=== PATIENT | male | born 1990 | race Caucasian/White ===

== ENCOUNTER 2024-06-30 13:49 | Observation (INO) | payer OTHER ==
--- NOTE | 2024-06-30 14:12 | ED ---
General Adult HPI - General Chief complaint: Trauma Stated complaint: Left arm injury Time Seen by Provider: 06/30/24 13:56 Source: patient, RN notes reviewed Mode of arrival: EMS Limitations: no limitations - History of Present Illness Initial comments: Patient is a 33-year-old male presenting to the emergency department with concerns for arm injuries. Patient was using a small skid with a bucket on it and accidentally pinched his upper arms, left more than right. Patient has significant discomfort mostly left upper arm. Patient received pain medication by EMS however still has discomfort. Last tetanus immunization was around 10 years ago. Patient denies any head injury. No neck or back pain. No headache. No chest pain or dyspnea. No abdominal pain. Patient was able to ambulate. Patient also has some discomfort right upper arm however not as severe and some mild discomfort right lower leg below the knee. Patient does admit to having a couple of beers earlier. - Related Data Allergies Allergy/AdvReac Type Severity Reaction Status Date / Time No Known Allergies Allergy Verified 06/30/24 16:15 Review of Systems ROS Statement: Those systems with pertinent positive or pertinent negative responses have been documented in the HPI. ROS Other: All systems not noted in ROS Statement are negative. Constitutional: Denies: fever Eyes: Denies: eye pain ENT: Denies: ear pain Respiratory: Denies: cough Cardiovascular: Denies: chest pain Endocrine: Denies: fatigue Gastrointestinal: Denies: abdominal pain, vomiting Musculoskeletal: Reports: as per HPI Skin: Reports: as per HPI Past Medical History Past Medical History: No Reported History History of Any Multi-Drug Resistant Organisms: None Reported Past Surgical History: No Surgical Hx Reported Past Psychological History: No Psychological Hx Reported Past Alcohol Use History: Daily, Occasional Past Drug Use History: None Reported General Exam Limitations: no limitations General appearance: alert Head exam: Present: atraumatic, normocephalic Eye exam: Present: normal appearance, PERRL, EOMI ENT exam: Present: normal oropharynx Neck exam: Present: normal inspection. Absent: tenderness Respiratory exam: Present: normal lung sounds bilaterally Cardiovascular Exam: Present: regular rate, normal rhythm Expanded Peripheral pulses: 2+: Radial (R), Radial (L), Posterior Tibialis (R), Posterior Tibialis (L), Dorsalis Pedis (R), Dorsalis Pedis (L) GI/Abdominal exam: Present: soft. Absent: distended, tenderness Extremities exam: Present: tenderness (Moderate to severe left upper arm, moderate right upper arm, minimal right anterior tib below the knee. Distally all extremities are neurovascularly intact and pulses are present. Good sensation. Good cap refill. Good strength.) Back exam: Present: normal inspection. Absent: tenderness, vertebral tenderness Neurological exam: Present: alert, oriented X3, CN II-XII intact. Absent: motor sensory deficit Psychiatric exam: Present: normal affect, normal mood Skin exam: Present: other (Left upper arm near the mid humerus with laceration approximately 2 cm. Right upper arm laceration in the similar area approximate ly 1 cm. Abrasion/laceration right elbow less than 1 cm. Right lower leg abrasions.) Course Vital Signs 06/30/24 13:55 Temperature 97.3 F L Pulse Rate 75 Respiratory 26 H Rate Blood Pressure 163/100 O2 Sat by Pulse 100 Oximetry - Reevaluation(s) Reevaluation #1: 06/30/24 17:11 CT scan and x-rays did result, x-rays at 4:59 PM. Case was discussed with Dr. Goodman pedraza who will keep patient for observation and continue to check and is aware and agrees with the risk of developing compartment syndrome in the future. He does recommend continuing Kefzol and is okay with superficial sutures. EKG Findings - EKG Results: EKG: interpreted by JAHAIRAD, sinus rhythm, normal axis, normal QRS, normal ST/T Procedures - Laceration Laceration #1 Consent Obtained: verbal consent Indication: laceration Site: upper extremity (right) Size (cm): 2 Description: linear Anesthetic Used: lidocaine 1% Anesthesia Technique: local infiltration Amount (mls): 3 Pre-repair: wound explored, irrigated extensively Type of Sutures: nylon Size of Sutures: 4-0 Number of Sutures: 2 Technique: simple, interrupted Patient Tolerated Procedure: well, no complications Laceration #2 Consent Obtained: verbal consent Indication: laceration Site: upper extremity (left) Size (cm): 4 Description: linear Anesthetic Used: lidocaine 1% Anesthesia Technique: local infiltration Amount (mls): 4 Pre-repair: wound explored, irrigated extensively, foreign body removed (mild amt. metal like material) Type of Sutures: nylon Size of Sutures: 4-0 Number of Sutures: 4 Technique: simple, interrupted Patient Tolerated Procedure: well, no complications Medical Decision Making - Medical Decision Making Priority [address] and Dr[address] Marte was notified and evaluated patient. Was pt. sent in by a medical professional or institution (DON Zarate, GENERAL EXPEDITOR, urgent care, hospital, or fdc...) When possible be specific @ -No Did you speak to anyone other than the patient for history (EMS, parent, family, police, friend...)? What history was obtained from this source @ - is present and helps provide history of incident Did you review nursing and triage notes (agree or disagree)? Why? @ -I reviewed and agree with nursing and triage notes Were old charts reviewed (outside hosp., previous admission, EMS record, old EKG, old radiological studies, urgent care reports/EKG's, fdc records)? Report findings @ -No old charts were reviewed Differential Diagnosis (chest pain, altered mental status, abdominal pain women, abdominal pain men, vaginal bleeding, weakness, fever, dyspnea, syncope, headache, dizziness, GI bleed, back pain, seizure, CVA, palpatations, mental health, musculoskeletal)? @ -Differential Musculoskeletal Muscular strain, contusion, ligament sprain, fracture, arthritis, septic arthritis, bursitis, cellulitis, muscle spasm, nerve compression, DVT, arterial occlusion, herpes zoster, electrolyte abnormality, tumor.... This is not meant to be in all inclusive list EKG interpreted by me (3pts min.). @ -As above X-rays interpreted by me (1pt min.). @ -X-ray bilateral humerus and elbows without acute fracture. There is some soft tissue gas. X-ray right tib-fib without acute abnormality CT interpreted by me (1pt min.). @ -CT scan brain, cervical spine, chest abdomen pelvis without acute traumatic injury U/S interpreted by me (1pt. min.). @ -None done What testing was considered but not performed or refused? (CT, X-rays, U/S, labs)? Why? @ -None What meds were considered but not given or refused? Why? @ -None Did you discuss the management of the patient with other professionals (p rofessionals i.e. , DON, GENERAL EXPEDITOR, lab, RT, psych nurse, social science teacher, rotary drill rig operator, teacher, safety security officer, piano case and bench assembler)? Give summary @ -Case discussed with Dr. Marte previously, see above. Case also discussed with Dr. Escobar send who does agree to keep patient Was smoking cessation discussed for >3mins.? @ -No Was critical care preformed (if so, how long)? @ -No Were there social determinants of health that impacted care today? How? (Homelessness, low income, unemployed, alcoholism, drug addiction, transportation, low edu. Level, literacy, decrease access to med. care, intermediate, rehab)? @ -No Was there de-escalation of care discussed even if they declined (Discuss DNR or withdrawal of care, Hospice)? DNR status @ -No What co-morbidities impacted this encounter? (DM, HTN, Smoking, COPD, CAD, Cancer, CVA, ARF, Chemo, Hep., AIDS, mental health diagnosis, sleep apnea, morbid obesity)? @ -None Was patient admitted / discharged? Hospital course, mention meds given and route, prescriptions, significant lab abnormalities, going to OR and other pertinent info. @ -Patient presents with crush injury bilateral upper arms with lacerations. No obvious fracture however patient is high risk for compartment syndrome and will be kept with orthopedics. Patient discomfort is tolerable at this time and no evidence of compartment syndrome. Distally extremities are neurovascularly intact. Patient and family are updated, lacerations sutured superficially Undiagnosed new problem with uncertain prognosis? @ -No Drug Therapy requiring intensive monitoring for toxicity (Heparin, Nitro, Insulin, Cardizem)? @ -No Were any procedures done? @ -Laceration repair, see above Diagnosis/symptom? @ -Crush injury bilateral upper arms Acute, or Chronic, or Acute on Chronic? @ -Acute Uncomplicated (without systemic symptoms) or Complicated (systemic symptoms)? @ -Default Side effects of treatment? @ -No Exacerbation, Progression, or Severe Exacerbation? @ - Poses a threat to life or bodily function? How? (Chest pain, USA, MD, pneumonia, PE, COPD, DKA, ARF, appy, cholecystitis, CVA, Diverticulitis, Homicidal, Suicidal, threat to staff... and all critical care pts) @ -Threat of compartment syndrome - Lab Data Result diagrams: 06/30/24 14:03 06/30/24 14:03 Lab Results 06/30/24 06/30/2424 Range/Units 14:03 14:03 14:03 WBC 11.4 H (3.8-10.6) k/uL RBC 4.50 (4.30-5.90) m/uL Hgb 13.9 (13.0-17.5) gm/dL Hct 41.9 (39.0-53.0) % MCV 93.0 (80.0-100.0) fL MCH 31.0 (25.0-35.0) pg MCHC 33.3 (31.0-37.0) g/dL RDW 12.0 (11.5-15.5) % Plt Count 417 (150-450) k/uL MPV 6.7 Neutrophils % 56 % Lymphocytes % 33 % Monocytes % 5 % Eosinophils % 2 % Basophils % 1 % Neutrophils # 6.4 (1.3-7.7) k/uL Lymphocytes # 3.8 (1.0-4.8) k/uL Monocytes # 0.6 (0-1.0) k/uL Eosinophils # 0.2 (0-0.7) k/uL Basophils # 0.1 (0-0.2) k/uL PT 10.7 (10.0-12.5) sec INR 1.0 (<1.2) APTT 24.4 (22.0-30.0) sec Sodium 139 (137-145) mmol/L Potassium 4.0 (3.5-5.1) mmol/L Chloride 108 H (98-107) mmol/L Carbon Dioxide 22 (22-30) mmol/L Anion Gap 9 mmol/L BUN 16 (9-20) mg/dL Creatinine 0.99 (0.66-1.25) mg/dL Est GFR (CKD-EPI)AfAm >90 (>60 ml/min/1.73 sqM) Est GFR (CKD-EPI)NonAf >90 (>60 ml/min/1.73 sqM) Glucose 94 (74-99) mg/dL Calcium 9.4 (8.4-10.2) mg/dL Total Bilirubin 0.4 (0.2-1.3) mg/dL AST 23 (17-59) U/L ALT 14 (4-49) U/L Alkaline Phosphatase 70 (38-126) U/L Troponin I (0.000-0.034) ng/mL Total Protein 6.8 (6.3-8.2) g/dL Albumin 4.3 (3.5-5.0) g/dL Serum Alcohol 38 mg/dL Blood Type Blood Type Confirm Blood Type Recheck Bld Type Recheck Status Antibody Screen Spec Expiration Date 06/30/24 06/30/24 06/30/24 Range/Units 14:03 14:03 15:25 WBC (3.8-10.6) k/uL RBC (4.30-5.90) m/uL Hgb (13.0-17.5) gm/dL Hct (39.0-53.0) % MCV (80.0-100.0) fL MCH (25.0-35.0) pg MCHC (31.0-37.0) g/dL RDW (11.5-15.5) % Plt Count (150-450) k/uL MPV Neutrophils % % Lymphocytes % % Monocytes % % Eosinophils % % Basophils % % Neutrophils # (1.3-7.7) k/uL Lymphocytes # (1.0-4.8) k/uL Monocytes # (0-1.0) k/uL Eosinophils # (0-0.7) k/uL Basophils # (0-0.2) k/uL PT (10.0-12.5) sec INR (<1.2) APTT (22.0-30.0) sec Sodium (137-145) mmol/L Potassium (3.5-5.1) mmol/L Chloride (98-107) mmol/L Carbon Dioxide (22-30) mmol/L Anion Gap mmol/L BUN (9-20) mg/dL Creatinine (0.66-1.25) mg/dL Est GFR (CKD-EPI)AfAm (>60 ml/min/1.73 sqM) Est GFR (CKD-EPI)NonAf (>60 ml/min/1.73 sqM) Glucose (74-99) mg/dL Calcium (8.4-10.2) mg/dL Total Bilirubin (0.2-1.3) mg/dL AST (17-59) U/L ALT (4-49) U/L Alkaline Phosphatase (38-126) U/L Troponin I <0.012 (0.000-0.034) ng/mL Total Protein (6.3-8.2) g/dL Albumin (3.5-5.0) g/dL Serum Alcohol mg/dL Blood Type O Positive Blood Type Confirm O Positive Blood Type Recheck No Previous Record Bld Type Recheck Status CABO Indicated Antibody Screen NEGATIVE Spec Expiration Date 07/03/20242302 Disposition Clinical Impression: Crush injury arm Disposition: ADMITTED IP TO THIS HOSP Is patient prescribed a controlled substance at d/c from ED?: No Referrals: None,Stated [Primary Care Provider] - 1-2 days Time of Disposition: 17:14
[2024-06-30] MEDS: HYDROmorphone 1 MG/ML 1 ML SYRINGE IVP STA ×2 (14:15→16:19)
[2024-06-30 14:16] LABS: Basophils # (A) 0.1 k/uL (0-0.2); Basophils % (A) 1 %; Eosinophils # (A) 0.2 k/uL (0-0.7); Eosinophils % (A) 2 %; HCT 41.9 % (39.0-53.0); HGB 13.9 gm/dL (13.0-17.5); Lymphocytes # (A) 3.8 k/uL (1.0-4.8); Lymphocytes % (A) 33 %; MCHC 33.3 g/dL (31.0-37.0); Mean Platelet Volume 6.7; Monocytes # (A) 0.6 k/uL (0-1.0); Monocytes % (A) 5 %; Neutrophils # (A) 6.4 k/uL (1.3-7.7); Neutrophils % (A) 56 %; Platelet Count 417 k/uL (150-450); WBC 11.4 k/uL (3.8-10.6)
[2024-06-30] MEDS: SODIUM CHLORIDE 0.9% 1,000 ML IV STA (14:16)
[2024-06-30 14:25] LABS: ALT 14 U/L (4-49); AST 23 U/L (17-59); African American GFR (CKD) >90 (>60 ml/min/1.73 sqM); Albumin 4.3 g/dL (3.5-5.0); Alcohol 38 mg/dL; Alkaline Phosphatase 70 U/L (38-126); Anion Gap 9 mmol/L; Blood Urea Nitrogen 16 mg/dL (9-20); Calcium 9.4 mg/dL (8.4-10.2); Carbon Dioxide 22 mmol/L (22-30); Chloride 108 mmol/L (98-107); Glucose 94 mg/dL (74-99); Non-African American GFR(CKD) >90 (>60 ml/min/1.73 sqM); Sodium 139 mmol/L (137-145); Total Bilirubin 0.4 mg/dL (0.2-1.3); Total Protein 6.8 g/dL (6.3-8.2)
[2024-06-30 14:26] LABS: Partial Thromboplastin Time 24.4 sec (22.0-30.0); Prothrombin Time 10.7 sec (10.0-12.5)
[2024-06-30] MEDS: DIPH,PERTUS(ACELL)TETVAC-LF 0.5 ML VIAL IM ONE (15:07)
--- NOTE | 2024-06-30 15:17 | XR ---
EXAM: XR chest 1V portable CLINICAL INDICATION:Male, 33 years old with history of trauma; [facility] COMPARISON: None. TECHNIQUE: Chest single view. FINDINGS: Lines/tubes/devices: None. Cardiomediastinum: Cardiac silhouette appears normal in size. Unremarkable mediastinal silhouette. Vasculature: No increased pulmonary vasculature. Lungs/pleura: Lung volumes are slightly low with mild crowding. No consolidation, sizeable effusion, or visible pneumothorax. Bones/soft tissues: Bony thorax appears grossly intact as seen. Regional soft tissues appear unremarkable. IMPRESSION: No acute cardiopulmonary findings. [facility], , 06/30/2024 3:14 PM
--- NOTE | 2024-06-30 15:17 | XR ---
EXAMINATION TYPE: XR pelvis AP view DATE OF EXAM: 06/30/2024 2:17 PM CLINICAL INDICATION:Male, 33 years old with history of Trauma; H COMPARISON: None TECHNIQUE: The pelvis was examined in a single projection. FINDINGS: There is no evidence of fracture or dislocation. There is no soft tissue abnormality. No abnormal ca lcifications are present. Pelvic phleboliths. The visualized lower lumbar spine appears intact. IMPRESSION: No acute fracture or dislocation identified, on this single view of the pelvis. [facility], , 06/30/2024 3:15 PM
--- NOTE | 2024-06-30 16:02 | CT ---
EXAMINATION TYPE: CT brain cspine wo con CT DLP: 1795.3 mGycm, Automated exposure control for dose reduction was used. DATE OF EXAM: 06/30/2024 2:44 PM COMPARISON: None. CLINICAL INDICATION:Male, 33 years old with history of trauma; trauma TECHNIQUE: Brain: Multiple axial CT images of the brain were obtained without IV contrast. Cspine: Axial CT images from the skull base to the inferior aspect of T2 we obtained without intraven ous contrast. Coronal and sagittal reformatted images were also reviewed. FINDINGS: Brain: Limitations by streak artifacts. Extra-axial spaces: No abnormal extra-axial fluid collections. Ventricular system: Within normal limits. Cerebral parenchyma: No increased attenuation to suggest acute intraparenchymal hemorrhage. The gra y-white matter interface appears maintained. No significant atrophy. White matter unremarkable by C T. Cerebellum: No acute abnormality. Mass effect: No evidence of mass effect or midline shift. Intracranial vasculature: Unremarkable Soft tissues: Normal. Visualized orbits: Orbital contents appear grossly intact. Calvarium/osseous structures: No evidence of calvarial fracture. Paranasal sinuses and mastoid air cells: Moderate scattered paranasal disease, greatest in the left m axillary. MRI is more sensitive for detecting acute processes such as infarct, and may be considered if clinica lly warranted. Cervical spine: Fracture: None seen. Osseous structures, spinal canal/neural foramina: Osseous structures appear unremarkable. No signific ant bony canal or neural foraminal stenoses. Canal and contents not well assessed by CT however no la rge disc protrusion or other acute abnormality is seen. If there is persistent concern MRI could be o btained for further evaluation. Vertebral alignment: No traumatic malalignment. Straightening mild reversal of the normal cervical lo rdosis, can be seen with degenerative changes, pain, positioning, muscular spasm. Neck soft tissues: No acute finding.. Other: Lung apices show no acute infiltrate or pneumothorax. IMPRESSION: CT head: 1. No acute intracranial CT abnormality. CT cervical spine: 1. No evidence of acute cervical spine fracture or traumatic malalignment. [facility], , 06/30/2024 4:00 PM
--- NOTE | 2024-06-30 16:38 | CT ---
EXAMINATION TYPE: CT ChestAbdPelvis w con CT DLP: 2329.8 mGycm, Automated exposure control for dose reduction was used. DATE OF EXAM: 06/30/2024 2:45 PM COMPARISON: None. CLINICAL INDICATION:Male, 33 years old with history of trauma; [facility], trauma TECHNIQUE: Multiple axial images of the chest, abdomen, and pelvis were obtained. Two-dimensional cor onal and sagittal reconstructions were obtained. Contrast used:100 mL of Isovue 300 with IV Contrast, Oral contrast used: without Oral Contrast FINDINGS: CHEST: LUNGS/ PLEURA: Minimal gravity dependent subsegmental atelectatic changes. Otherwise clear. No pleura l effusion or pneumothorax. AIRWAY: Central airways are patent. LOWER NECK: No significant findings. MEDIASTINUM: No evidence of adenopathy or hematoma. No free gas.. HEART: Normal heart size. No pericardial effusion. VASCULATURE: The aorta appears normally enhancing.. Ascending aorta is 2.8 CM, descending is 2.7 CM. Pulmonary trunk measures 2.9 CM. Pulmonary trunk is normal in size. Grossly preserved enhancement of the pulmonary arteries, in the limits of non-CTA exam. SOFT TISSUES/LYMPH NODES: Unremarkable soft tissues. No axillary adenopathy. MUSCULOSKELETAL: No acute osseous abnormalities OTHER: No other significant finding. ABDOMEN PELVIS: Streak artifacts ABDOMEN LIVER: Unremarkable GALLBLADDER AND BILE DUCTS: Unremarkable. PANCREAS: Unremarkable. SPLEEN: Unremarkable. ADRENAL GLANDS: Unremarkable.. KIDNEYS AND URETERS: No evidence of hydronephrosis, renal or ureteral calculus. PELVIS BLADDER: Unremarkable REPRODUCTIVE: Unremarkable. ABDOMEN & PELVIS STOMACH AND BOWEL: Stomach and duodenum are unremarkable normal appendix. Unremarkable colon. PERITONEUM/RETROPERITONEUM: No evidence of pneumoperitoneum or free fluid. VASCULATURE: No evidence of aortic aneurysm. MUSCULOSKELETAL: No acute osseous abnormalities LYMPH NODES: No enlarged nodes by CT size criteria. SOFT TISSUES/ABDOMINAL WALL: Unremarkable OTHER: No other significant finding. IMPRESSION: No acute radiographic findings. [facility], , 06/30/2024 4:35 PM
--- NOTE | 2024-06-30 16:54 | XR ---
EXAMINATION TYPE: XR elbow complete bilateral DATE OF EXAM: 06/30/2024 2:54 PM CLINICAL INDICATION:Male, 33 years old with history of trauma; H COMPARISON: TECHNIQUE: The bilateral elbows were examined in AP, lateral, and oblique projections. FINDINGS: No visualized acute fracture or dislocation. Soft tissue swelling suggested with multiple small foci of soft tissue gas about the bilateral elbows, likely related to the current trauma; correlate for pe netrating injury. IV cannula is present in the right elbow. No unexpected radiopaque foreign body is seen. IMPRESSION: No acute fracture or dislocation bilaterally. Soft tissue gas. [facility], , 06/30/2024 4:52 PM
--- NOTE | 2024-06-30 16:56 | XR ---
EXAMINATION TYPE: XR tibia fibula RT DATE OF EXAM: 06/30/2024 2:54 PM CLINICAL INDICATION:Male, 33 years old with history of trauma; [facility] COMPARISON: TECHNIQUE: XR tibia fibula RT; tibia/fibula was examined in AP and lateral projections. FINDINGS: No evidence of acute fracture or dislocation. Unremarkable soft tissues without radiopaque foreign roxi dy seen. IMPRESSION: No evidence of acute fracture. [facility], , 06/30/2024 4:53 PM
--- NOTE | 2024-06-30 17:01 | XR ---
EXAMINATION TYPE: XR humerus bilateral DATE OF EXAM: 06/30/2024 2:54 PM CLINICAL INDICATION:Male, 33 years old with history of trauma; [facility] COMPARISON: TECHNIQUE: 3 views each of the bilateral humeri. FINDINGS: No acute fracture or dislocation demonstrated. Soft tissue swelling with multiple small foci of soft tissue gas about the bilateral elbows and distal arms, likely related to the current trauma. There is an IV cannula seen in the right elbow region. No unexpected radiopaque foreign body is seen. IMPRESSION: No acute fracture of the right or left humerus. Soft tissue swelling and gas. [facility], , 06/30/2024 4:59 PM
[2024-06-30] MEDS: LIDOCAINE 1% INJ 10MG/ML (20 ML MDV) SQ ONE (17:30)
[2024-06-30] MEDS ORDERED: HYDROcodone/APAP 5-325MG 1 EACH TAB PO PRN (18:04)
[2024-06-30] MEDS ORDERED: NALOXONE 0.4 MG/ML 1 ML VIAL IV PRN (18:04)
[2024-06-30] MEDS ORDERED: ACETAMINOPHEN TAB 325 MG TAB PO PRN (18:04)
[2024-06-30] MEDS: SODIUM CHLORIDE 0.9% 1,000 ML IV SCH (19:10)
[2024-06-30] MEDS: FAMOTIDINE 20 MG TAB PO SCH (20:55)
[2024-06-30] MEDS: HYDROmorphone 1 MG/ML 1 ML SYRINGE IVP PRN (20:55)
[2024-07-01 06:20] VITALS: TEMP 98.3
[2024-07-01 10:35] VITALS: BP 150/91
[2024-07-01 11:05] VITALS: PULSE 67; RESP 18
--- NOTE | 2024-07-01 14:05 | P.CNOR ---
History of Present Illness - [facility] Consult date: 07/01/24 Consult reason: other (Crush injury bilateral upper extremities) History of present illness: Patient is a 33-year-old male who was brought to [facility] emergency room yesterday after a bucket from a skid steer dropped onto the bilateral upper arms which caused some steel to hit the arm also. He underwent multiple imaging and lab test at [facility] ER. The ER staff did speak with my att ending physician regarding this. Patient was admitted for observation of compartments along with pain control. Was evaluated today at bedside, his significant other was present at bedside. He is resting comfortably. He has Wyatt bandages to the bilateral upper arms just proximal to the elbows. There were 2 separate lacerations, 1 on each arm that were taken care of by the emergency room staff. Patient has generalized discomfort to the bilateral upper extremities. He does note some swelling around the bilateral elbows. He denies any pain to the forearms, hand or wrist at this time. He denies any shoulder pain bilaterally. Patient has no other orthopedic complaints at this time. He denies any previous surgery to the bilateral upper extremities. Review of Systems Constitutional: Reports as per HPI Past Medical History Past Medical History: No Reported History History of Any Multi-Drug Resistant Organisms: None Reported Past Surgical History: No Surgical Hx Reported Past Psychological History: No Psychological Hx Reported Smoking Status: Former smoker Past Alcohol Use History: Occasional Past Drug Use History: None Reported Medications and Allergies Home Medications Medication Instructions Recorded Confirmed Type Cephalexin [Keflex] 500 mg PO Q6HR 10 Days #40 cap 07/01/24 Rx HYDROcodone/APAP 5-325MG [[place] 1 tab PO Q8HR PRN #18 tab 07/01/24 Rx 5-325] Ibuprofen 800 mg PO Q8H PRN #30 tab 07/01/24 Rx Sennosides/Docusate Sodium 2 each PO DAILY PRN #21 tablet 07/01/24 Rx [Senna-S 8.6-50 mg Tablet] Allergies Allergy/AdvReac Type Severity Reaction Status Date / Time No Known Allergies Allergy Verified 06/30/24 18:09 Physical Examination General Orthopedic exam: Wyatt bandage present to the upper arm bilaterally, just proximal to the elbow. ER note was reviewed and stated 2 separate incisions that were both sutured with nylon. No significant swelling present to the bilateral upper arms. There is some generalized swelling just distal to the Wyatt bandage, surrounding the elbow soft tissue. There is a small puncture wound noted on the medial aspect of the left arm near the medial epicondyle, there is very mild erythema noted in that area. There is no drainage appreciated. Range of motion assessment demonstrated adequate extension and flexion at the wrist, he can wiggle all the fingers and make a fist with no discomfort. Pronation and supination are intact in the bilateral forearms. Extension and flexion of the elbow do reproduce some pain but he is able to do this. Shoulder motion bilaterally remains intact, no focal deficits strength. Strength testing was not assessed today at bedside. Sensory exam to light touch is intact throughout the extremity. The anterior and posterior along with medial and lateral compartments of the bilateral arms are soft and compressible. Radial ulnar pulse are 2+ bilaterally Results - Labs Labs: Abnormal Lab Results - Last 24 Hours (Table) 06/30/24 06/30/24 06/30/24 Range/Units 14:03 14:03 14:03 WBC 11.4 H (3.8-10.6) k/uL Chloride 108 H (98-107) mmol/L Creatine Kinase 240 H (55-170) U/L H & H 06/30/24 Range/Units 14:03 Hgb 13.9 (13.0-17.5) gm/dL Hct 41.9 (39.0-53.0) % Coagulation 06/30/24 Range/Units 14:03 INR 1.0 (<1.2) Result Diagrams: 06/30/24 14:03 06/30/24 14:03 Assessment and Plan Assessment: Crush injury bilateral upper extremities Right arm laceration Left arm laceration Left arm puncture wound Bilateral arm abrasions Plan: Imaging: Multiple x-rays and image reports were reviewed. Images of the bilateral upper arms, this to include the humerus and elbow demonstrated no acute fractures or dislocations, no evidence of foreign bodies noted. Plan: I was able to review the case, this to include physical exam findings and imaging studies with my attending Dr. Escobar's and. No orthopedic surgical intervention recommended at this time We a long discussion today at bedside with regards to local wound care of both the lacerations to the arms and also the small puncture wound. Discussed with nursing that prior to discharge they would do a bedside washout of that small puncture wound. 10 days of oral Keflex at 500 mg 4 times daily was prescribed. Pain medication and stool softeners will also be prescribed. Plan for follow-up in the outpatient setting toward the end of the week for recheck of the bilateral upper extremities. Patient stable for discharge home today Time with Patient: Less than 30
--- NOTE | 2024-07-01 14:08 | P.DS ---
Providers Date of admission: 06/30/24 18:04 Expected date of discharge: 07/01/24 Attending physician: Mp Santamaria DO Primary care physician: Stated None Hospital Course: Date of admission: 06/30/2024 Date of discharge: 07/01/2024 Admission diagnosis: Crush injury bilateral upper extremities, left and right upper extremity lacerations, left upper extremity puncture wound Discharge diagnosis: Same Attending physician: Dr. Santamaria Brief history: Patient is a 33-year-old male who had a crush injury to the bilateral upper extremities when working with a small skid steer and steel material on 06/30/2024. Patient was brought to [facility] for further evaluation. He was evaluated by the ER staff, he underwent multiple imaging and lab test. Patient was admitted to the hospital for observation of compartments of the bilateral upper extremities and pain control. No orthopedic surgical intervention was needed, we continue with conservative measures. Hospital course: During hospital stay patient's pain was well-controlled. Local wound care was done to the bilateral upper extremities. There were no concerns for compartment syndrome on exam. Discharge condition/disposition: Patient will be discharged [home] in stable condition. Discharge medications: Instructions are given on resumption of patient's normal daily medications per primary care recommendation, in addition patient will be prescribed [place] 5 mg / 325 mg, ibuprofen 800 mg, senna S, Keflex 500 mg. Discharge instructions: 1. Basic wound care to the lacerations to the upper extremities. No soaking, this to include pools or hot tubs. Antibacterial soap and washcloth 2. Okay to wash over puncture wound with soap and water 3. Basic bandaging to the bilateral upper extremities 4. Take antibiotics as prescribed 5. Pain medication as needed 6. Plan for [facility] at [facility] 3 days for recheck Patient Condition at Discharge: Good Plan - Discharge Summary New Discharge Prescriptions: New Ibuprofen 800 mg PO Q8H PRN #30 tab PRN Reason: Pain Cephalexin [Keflex] 500 mg PO Q6HR 10 Days #40 cap Sennosides/Docusate Sodium [Senna-S 8.6-50 mg Tablet] 2 each PO DAILY PRN #21 tablet PRN Reason: Constipation HYDROcodone/APAP 5-325MG [[place] 5-325] 1 tab PO Q8HR PRN #18 tab PRN Reason: Pain Discharge Medication List Cephalexin [Keflex] 500 mg PO Q6HR 10 Days #40 cap 07/01/24 [Rx] HYDROcodone/APAP 5-325MG [[place] 5-325] 1 tab PO Q8HR PRN #18 tab 07/01/24 [Rx] Ibuprofen 800 mg PO Q8H PRN #30 tab 07/01/24 [Rx] Sennosides/Docusate Sodium [Senna-S 8.6-50 mg Tablet] 2 each PO DAILY PRN #21 tablet 07/01/24 [Rx] Follow up Appointment(s)/Referral(s): None,Stated [Primary Care Provider] - 1-2 days Mp Santamaria DO [Doctor of Osteopathic Medicine] - 3 Days Activity/Diet/Wound Care/Special Instructions: Orthopedic discharge instructions: 1. Local wound care to mid arm incisions, no soaking, baths or hot tubs. Okay to utilize antibacterial soap and several washcloth 2. Avoid excess use of the upper arms, avoid heavy lifting 3. Take antibiotics as prescribed 4. Pain medication as needed Discharge Disposition: HOME SELF-CARE
== END 2024-07-01 14:30 | disposition home or self-care (01) ==
LOC: EC 13:49 → 6NMEDSUR 18:04 → 1SOBS 07-01 10:22
PROVIDERS: ADMIT Orthopaedic Surgery; ATTEND Orthopaedic Surgery
DX: S47.2XXA Crushing injury of left shoulder and upper arm, initial encounter (principal); S47.1XXA Crushing injury of right shoulder and upper arm, initial encounter; S41.111A Laceration without foreign body of right upper arm, initial encounter; S41.112A Laceration without foreign body of left upper arm, initial encounter; S40.811A Abrasion of right upper arm, initial encounter; S40.812A Abrasion of left upper arm, initial encounter; S41.132A Puncture wound without foreign body of left upper arm, initial encounter; W31.82XA Contact with other commercial machinery, initial encounter; Z87.891 Personal history of nicotine dependence; Z23 Encounter for immunization
CPT/HCPCS: 12002; 36415; 70450; 71045; 71260; 72125; 72170; 74177; 80053; 80320; 82550; 84484; 85025; 85610; 85730; 86850; 86900; 86901; 90471; 90715; 93005; 96361; 96365; 96366; 96375; 96376; 99285